=== PATIENT | female | born 1985 | race Caucasian/White ===

== ENCOUNTER 2016-12-15 16:42 | Outpatient (CLI) | payer OTHER ==
[2016-12-15 16:59] LABS: Hemoglobin A1c 4.9 % (4.0-6.0)
[2016-12-15 17:05] LABS: ALT (SGPT) 19 U/L (0-55); AST (SGOT) 29 U/L (5-34); Alkaline Phosphatase 74 U/L (40-150); Anion Gap 16 mmol/L (10-20); BUN (Urea Nitrogen) 18 mg/dL (7.0-18.7); Bilirubin, Total 0.3 mg/dL (0.2-1.2); Calc. Creatinine Clearance 0 mL/min (70-130); Calcium 9.8 mg/dL (7.8-10.44); Carbon Dioxide 25 mmol/L (22-29); Chloride 102 mmol/L (98-107); Estimated GFR-MDRD 90; Globulin 2.7 g/dL (2.4-3.5); LDL Cholesterol, Calculated 184 mg/dL; Protein, Total 7.5 g/dL (6.0-8.3)
[2016-12-15 17:14] LABS: #Basophils 0.1 thou/uL (0.0-0.2); #Eosinphils 0.1 thou/uL (0.0-0.7); #Monocytes 0.4 thou/uL (0.11-0.59); #Neutrophils 4.5 thou/uL (1.40-6.50); %Basophils 0.8 % (0.0-1.0); %Eosinophils 1.9 % (0.0-10.0); %Lymphocytes 27.7 % (21.0-51.0); %Monocytes 6.1 % (0.0-10.0); Mean Platelet Volume 6.4 fL (7.4-10.4); Red Blood Cell (RBC) Count 4.55 mill/uL (4.20-5.40)
== END 2016-12-15 16:43 | disposition home or self-care (01) ==
LOC: NAV SJFMSP 16:42
PROVIDERS: ATTEND Family Medicine
DX: Z00.00 Encounter for general adult medical examination without abnormal findings (principal)
CPT/HCPCS: 80053; 80061; 82306; 83036; 84439; 84443; 85025

== ENCOUNTER 2019-12-30 16:52 | Emergency (ER) | payer OTHER ==
[2019-12-30 17:43] LABS: #Basophils 0.1 thou/uL (0.0-0.2); #Eosinphils 0.1 thou/uL (0.0-0.7); #Lymphocytes 1.9 thou/uL (1.20-3.40); #Monocytes 0.5 thou/uL (0.11-0.59); #Neutrophils 5.6 thou/uL (1.40-6.50); %Basophils 0.7 % (0.0-1.0); %Eosinophils 0.6 % (0.0-10.0); %Lymphocytes 23.8 % (21.0-51.0); %Monocytes 5.6 % (0.0-10.0); %Neutrophils 69.3 % (42.0-75.0); Hemoglobin 14.3 g/dL (12.0-16.0); Mean Corpuscular HGB CONC 32.5 g/dL (32.0-36.0); Mean Corpuscular Hemoglobin 29.5 pg (27.0-31.0); Mean Corpuscular Volume 90.6 fL (78.0-98.0); Mean Platelet Volume 7.4 fL (7.4-10.4); Platelet Count 255 thou/uL (130-400); RBC Distribution Width 12.1 % (11.5-14.5); Red Blood Cell (RBC) Count 4.86 mill/uL (4.20-5.40)
[2019-12-30] MEDS ORDERED: Morphine 4 MG/ML VIAL ONE (17:51)
[2019-12-30] MEDS ORDERED: Ondansetron PF 4 MG/2 ML Vial ONE (17:51)
[2019-12-30] MEDS ORDERED: Sodium Chloride 0.9% 1,000 ML ONE (17:51)
[2019-12-30] MEDS ORDERED: Orphenadrine Citrate 60 MG/2 ML VIAL ONE (17:51)
[2019-12-30 17:57] LABS: Bilirubin Negative (Negative); Blood, Urine Trace (Negative); Clarity Clear (Clear); Glucose, Urine (Dipstick) Negative (Negative); Leukocyte Negative (Negative); Nitrite Negative (Negative); Protein, Urine (Dipstick) Negative (Neg-Trace); Urobilinogen 0.2 mg/dL (Less than 2)
[2019-12-30 17:58] LABS: ALT (SGPT) 21 U/L (8-55); AST (SGOT) 23 U/L (5-34); Albumin 5.1 g/dL (3.5-5.0); Alkaline Phosphatase 49 U/L (40-110); Anion Gap 16 mmol/L (10-20); BUN (Urea Nitrogen) 16 mg/dL (7.0-18.7); Bilirubin, Total 0.4 mg/dL (0.2-1.2); Calc. Creatinine Clearance 0 mL/min (70-130); Calcium 9.7 mg/dL (7.8-10.44); Carbon Dioxide 21 mmol/L (22-29); Chloride 104 mmol/L (98-107); Estimated GFR-MDRD Greater than 90; Globulin 2.8 g/dL (2.4-3.5); Glucose 83 mg/dL (70-105); Potassium 3.9 mmol/L (3.5-5.1); Protein, Total 7.9 g/dL (6.0-8.3); Sodium 137 mmol/L (136-145)
[2019-12-30 17:58] LABS: Bacteria/HPF Rare-Few HPF (None Seen); RBC/HPF 0-3 HPF (0-3); Squamous Epithelial 0-3 HPF (0-3); WBC/HPF 0-3 HPF (0-3)
[2019-12-30 18:01] LABS: Pregnancy Test - Urine (BHCG) Negative (Negative); Pregu Control Background? CLEAR/WHITE (CLR/WHITE); Pregu Control Bar Appear? YES (CONTROL BAR)
--- NOTE | 2019-12-30 18:03 | RAD ---
Portable frontal chest radiograph: 12/30/2019 COMPARISON: None HISTORY: Chest pain FINDINGS: Lungs are clear. Heart and mediastinal contours appear within normal limits. IMPRESSION: No acute findings.
[2019-12-30 18:05] LABS: Amphetamine Not Detected (NotDetected); Barbiturates Screen Not Detected (NotDetected); Benzodiazepine Screen Not Detected (NotDetected); Cocaine Metabolite Screen Not Detected (NotDetected); Medtox Control Line Valid? VALID (VALID); Methadone Not Detected (NotDetected); Methamphetamine Not Detected (NotDetected); Opiate Screen Detected (NotDetected); Oxycodone Screen Not Detected (NotDetected); Phencyclidine (PCP) Not Detected (NotDetected); THC/Cannabinoid Screen Detected (NotDetected); Tricyclic Screen Not Detected (NotDetected)
--- NOTE | 2019-12-30 18:21 | CT ---
CT BRAIN WITHOUT CONTRAST: Comparison: None. History: Headache. Technique: Multiple contiguous axial images were obtained in a CT of the brain without contrast. FINDINGS: The brain is normal in morphology and attenuation without focal lesions or confluent areas of infarct ion. There is no evidence of hydrocephalus, intracranial hemorrhage, or extraaxial fluid collection. The calvarium and overlying soft tissues are unremarkable. The visualized paranasal sinuses and masto id air cells are well aerated. IMPRESSION: No evidence of acute intracranial abnormality. POS: [facility]
--- NOTE | 2019-12-30 18:23 | RAD ---
THREE VIEWS LEFT SHOULDER: Comparison: 07-16-19 History: Left shoulder pain. FINDINGS: Three views of the left shoulder shows no evidence of acute fracture or dislocation. No degenerative changes are seen. No soft tissue swelling is present. IMPRESSION: No evidence of acute osseous abnormality. POS: C
[2019-12-30] MEDS ORDERED: Amlodipine 5 MG TAB ONE (18:59)
[2019-12-30] MEDS ORDERED: Hydrochlorothiazide 25 MG TAB ONE (19:01)
[2019-12-30] MEDS ORDERED: Lisinopril 20 MG TAB ONE (19:01)
== END 2019-12-30 19:25 | disposition left against medical advice (07) ==
LOC: NAV ERS 16:52
DX: I16.0 Hypertensive urgency (principal); R07.89 Other chest pain; M54.2 Cervicalgia; G89.29 Other chronic pain; M25.512 Pain in left shoulder; R11.0 Nausea; I10 Essential (primary) hypertension; F41.9 Anxiety disorder, unspecified; F32.9 Major depressive disorder, single episode, unspecified; F17.210 Nicotine dependence, cigarettes, uncomplicated; Z79.899 Other long term (current) drug therapy
CPT/HCPCS: 70450; 71045; 80053; 80306; 81003; 81015; 81025; 83735; 84484; 85025; 85379; 93005; 94760; 96361; 96374; 96375; J2270; J2360; J2405; J7050

== ENCOUNTER 2020-02-17 16:31 | Emergency (ER) | payer OTHER ==
[2020-02-17] MEDS ORDERED: methylPREDNISolone Sod Succ/PF 125 MG/2 ML VIAL ONE (16:54)
[2020-02-17] MEDS ORDERED: Cyclobenzaprine 10 MG TAB ONE (16:54)
[2020-02-17] MEDS ORDERED: Acetaminophen 500 MG TAB ONE (17:20)
== END 2020-02-17 17:29 | disposition home or self-care (01) ==
LOC: NAV ERS 16:31
DX: M62.838 Other muscle spasm (principal); F32.9 Major depressive disorder, single episode, unspecified; F41.9 Anxiety disorder, unspecified; I10 Essential (primary) hypertension; F17.210 Nicotine dependence, cigarettes, uncomplicated; Z79.899 Other long term (current) drug therapy
CPT/HCPCS: 96372; 99283; J2930

== ENCOUNTER 2020-04-23 19:20 | Emergency (ER) | payer OTHER ==
[2020-04-23] MEDS ORDERED: cloNIDine 0.2 MG TAB ONE (19:33)
== END 2020-04-23 20:50 | disposition home or self-care (01) ==
LOC: NAV ERS 19:20
DX: I10 Essential (primary) hypertension (principal); F41.9 Anxiety disorder, unspecified; F32.9 Major depressive disorder, single episode, unspecified; Z87.891 Personal history of nicotine dependence; Z79.899 Other long term (current) drug therapy
CPT/HCPCS: 99283

== ENCOUNTER 2020-11-06 17:11 | Emergency (ER) | payer OTHER | END 2020-11-06 17:55 | disposition home or self-care (01) | LOC: NAV ERS 17:11 | DX: I10 Essential (primary) hypertension (principal); Z87.891 Personal history of nicotine dependence; Z79.899 Other long term (current) drug therapy | CPT/HCPCS: 99283 ==